=== PATIENT | female | born 1965 | race African-American/Black ===

== ENCOUNTER 2017-01-16 19:15 | Emergency (ER) | payer OTHER ==
[~2017-01-16] VITALS: Ht 154.9 cm; Wt 90.7 kg
--- NOTE | ~2017-01-16 | EKG ---
[address] [place] [address] ELECTROCARDIOGRAM REPORT Name: BOBBY RODRIGUEZ Room #: DEP [facility]#: [id number] Admission: 01/16/17 Attend Phys: Discharge: 01/16/17 Date of : 67 Report #: [id number] THIS REPORT FOR: //name// [facility] ED Test Date: 2017-01-16 Test Time: 23:00:02 Pat Name: BOBBY RODRIGUEZ Department: Room: Gender: F Solution Developer: [id number] : 1965 Requested By: Hua Sosa Order Number: [id number] MD: Leopoldo Muir Measurements Intervals [place] Rate: 103 P: 62 GA: 154 QRS: 18 QRSD: 75 T: 9 QT: 337 QTc: 441 Interpretive Statements Sinus tachycardia Otherwise no significant abnormality No previous ECG available for comparison Electronically Signed On 01-17-2017 8:53:23 CDT by Leopoldo Muir [email or web address] <ELECTRONICALLY SIGNED> By: Leopoldo Muir MD, [facility] 01/17/17 0853 2300 2300 Leopoldo Muir MD, FACC /EPI
--- NOTE | ~2017-01-16 | EKG ---
[place] [address] [address] [facility] [place] [address] ELECTROCARDIOGRAM REPORT Name: BOBBY RODRIGUEZ Room #: DEP [facility]#: [id number] Admission: 01/16/17 Attend Phys: Discharge: 01/16/17 Date of : 67 Report #: [id number] THIS REPORT FOR: //name// [facility] ED Test Date: 2017-01-16 Test Time: 19:55:58 Pat Name: BOBBY RODRIGUEZ Department: Room: Gender: F Rn Occupational: Zayra RASCON RN : 1965 Requested By: Hua Sosa Order Number: [id number] MD: Leopoldo Muir Measurements Intervals [place] Rate: 98 P: 53 [place]: 159 QRS: 13 QRSD: 73 T: 6 QT: 341 QTc: 436 Interpretive Statements Sinus rhythm No significant abnormality No previous ECG available for comparison Electronically Signed On 01-17-2017 8:50:11 CDT by Leopoldo Muir [email or web address] <ELECTRONICALLY SIGNED> By: Leopoldo Muir MD, [facility] 01/17/17 0850 1955 54 Leopoldo Muir MD, FACC /EPI
[2017-01-16 20:27] LABS: BASOPHILS 0.5 % (0.0-2.0); EOSINOPHILS 0.5 % (0.0-3.0); HEMATOCRIT 35.5 % (37.0-47.0); HEMOGLOBIN 11.6 gm/dL (12.0-15.0); LYMPHOCYTES 21.3 % (24.0-44.0); MCH 26.2 pg (26.0-34.0); MCHC 32.8 g/dL (28.0-37.0); MCV 79.8 fL (80.0-100.0); MONOCYTES 11.2 % (1.0-8.0); PLATELET COUNT 238 thou/uL (150-400); POLYS 66.5 % (36.0-66.0); RBC 4.44 mil/uL (4.20-5.00); RDW 18.1 % (10.5-14.5)
[2017-01-16 20:28] LABS: MANUAL DIFF NO
[2017-01-16 20:36] LABS: ANION GAP 9 mmol/L (7-16); BUN 12 mg/dL (7-18); CALCIUM 9.1 mg/dL (8.5-10.1); CHLORIDE 100 mmol/L (98-107); CO2 25 mmol/L (21-32); CREATININE 0.9 mg/dL (0.6-1.0); GLUCOSE 120 mg/dL (74-106); POTASSIUM 4.2 mmol/L (3.5-5.1); SODIUM 134 mmol/L (136-145)
[2017-01-16 20:49] LABS: NT-PRO BRAIN NAT PEPTIDE 61 pg/mL (<300); TROPONIN-I < 0.04 ng/mL (<0.04-0.07)
[2017-01-16 21:17] LABS: ALBUMIN 3.2 g/dL (3.4-5.0); ALKALINE PHOSPHATASE 74 U/L (46-116); DIRECT BILIRUBIN < 0.1 mg/dL (<0.1-0.3); SGOT 37 U/L (15-37); SGPT 21 U/L (30-65); TOTAL BILIRUBIN 0.4 mg/dL (<0.1-1.0); TOTAL PROTEIN 8.2 g/dL (6.4-8.2)
[2017-01-16] MEDS ORDERED: ULTRAM 50MG TAB50 MG PO (23:06)
[2017-01-16] MEDS ORDERED: NAPROSYN500 M1 PO (23:07)
[2017-01-16 23:53] VITALS: BP 160/74
== END 2017-01-16 23:56 | disposition home or self-care (01) ==
LOC: ER 19:15
PROVIDERS: Emergency Medicine
DX: R07.89 Other chest pain (principal); R06.02 Shortness of breath